=== PATIENT | female | born 2000 | race Caucasian/White ===

== ENCOUNTER → 2020-03-17 | Outpatient (CLI) | payer OTHER ==
[~2020-03-17] MED LIST: AZAT50TA9 PO; FOLI-17 PO; METO25TA4 PO; OMEP20CA20 PO; OMNIPAQUE 350 MG/ML, 100ML BOTTLE ONE; PRED10TA PO
== END | disposition home or self-care (01) ==
LOC: RAD 13:18
PROVIDERS: ATTEND Internal Medicine Gastroenterology
DX: Z43.2 Encounter for attention to ileostomy (principal); R10.30 Lower abdominal pain, unspecified
CPT/HCPCS: 74177; Q9967